=== PATIENT | female | born 1985 | race Caucasian/White ===

== ENCOUNTER 2017-01-19 08:57 | Emergency (ER) | payer BC ==
[2017-01-19 09:10] VITALS: BP 129/89
--- NOTE | 2017-01-19 09:30 | UC ---
Lower Extremity/Ankle HPI - HPI Summary HPI Summary: 31 yo WF post- C/S 2 weeks ago s/p RLE phlebitis c/o right upper inner thigh pain BIB due to dizziness and worsening RLW pain. Pt states she has not been feeling well in the last 2 days , leg pain is associated with chills and dizziness but denies CP/SOB. Denies having a DVT - History of Current Complaint Chief Complaint: UCLowerExtremity Stated Complaint: LEG PAIN Time Seen by Provider: 01/19/17 09:10 Hx Obtained From: Patient Hx Last Menstrual Period: 07/23/14 ?: No Onset/Duration: Sudden Onset Severity Initially: Moderate - Allergies/Home Medications Allergies/Adverse Reactions: Allergies Allergy/AdvReac Type Severity Reaction Status Date / Time No Known Allergies Allergy Verified 01/19/17 09:23 Home Medications: Home Medications Multivit-Min W/Fe-FA [ and Iron] 01/19/17 [History] PMH/Surg Hx/FS Hx/Imm Hx - Additional Past Medical History Additional PMH: POst C/S 2 weeks ago, had phlebitis Previously Healthy: Yes - Surgical History Surgical History: None - Social History Alcohol Use: Occasionally Substance Use Type: None Smoking Status (MU): Light Every Day Tobacco Smoker Type: Cigarettes Review of Systems Constitutional: Chills Skin: Other - appears ill ENT: Negative Respiratory: Negative Cardiovascular: Negative Genitourinary: Negative Motor: Negative Musculoskeletal: Myalgia - SEE HPI Neurological: Negative All Other Systems Reviewed And Are Negative: Yes Physical Exam Triage Information Reviewed: Yes Appearance: Ill-Appearing Vital Signs: Initial Vital Signs Temp 36.3 C 01/19/17 09:06 Pulse 123 01/19/17 09:06 Resp 18 01/19/17 09:06 BP 129/89 01/19/17 09:06 Pulse Ox 98 01/19/17 09:06 Eye Exam: Normal ENT Exam: Normal Dental Exam: Normal Neck exam: Normal Neck: Positive: 1 Respiratory Exam: Normal Respiratory: Positive: Lungs clear Cardiovascular Exam: Normal Cardiovascular: Positive: Tachycardia Abdominal Exam: Normal Abdomen Description: Positive: Nontender Musculoskeletal: Positive: Other: - TTP over right upper inner thigh region, radiating anteriorly, TTP also over popliteus Neurological Exam: Normal Psychological Exam: Normal Skin Exam: Normal Lower Extremity Course/Dx - Course Course Of Treatment: Called [facility] spoke to BRIAN, the provider in the ED and notifed her that she will need w/u for her dizziness, and r/o RLE DVT vs PE. EKG revealed sinus tachy, rate of 110. - Differential Dx/Diagnosis Provider Diagnoses: 1- right thigh pain. 2- tachycardia. 3 - weakness Discharge - Discharge Plan Condition: Stable Disposition: ADMITTED TO [facility] Discharge Disposition Comment: Called [facility] and pt sent via Ambulance Referrals: Lisa Kumar MD [Primary Care Provider] -
[2017-01-19] MEDS ORDERED: NS 0.9% 1000 ML* 1,000 ML IV ONE (09:40)
== END 2017-01-19 09:40 | disposition short-term general hospital (02) ==
LOC: UCEAST 08:57
DX: M79.651 Pain in right thigh (principal); R00.0 Tachycardia, unspecified; R53.1 Weakness; F17.210 Nicotine dependence, cigarettes, uncomplicated
CPT/HCPCS: 93005; 99213; G0463

== ENCOUNTER → 2017-01-19 09:54 | Emergency (ER) | payer BC ==
[~2017-01-19 09:54] MED LIST: Enoxaparin(*) 80 MG/0.8 ML SYR SUBCUT SCH; Iohexol 350* (CONTRAST) 500 ML MDV IV ONE; NS 0.9% 1000 ML* 1,000 ML IV ONE; Warfarin TAB(*) 5 MG PO ONE
[2017-01-19 10:22] LABS: Hematocrit 36 % (35-47); Hemoglobin 12.1 g/dl (12.0-16.0); Mean Corpuscular HGB Conc 33 g/dl (31-36); Mean Corpuscular Hemoglobin 32 pg (27-31); Mean Corpuscular Volume 95 fL (80-97); Mean Platelet Volume 8 um3 (7.4-10.4); Red Blood Count 3.83 10^6/ul (4.0-5.4); Red Cell Distribution Width 13 % (10.5-15); White Blood Count 19.6 10^3/ul (3.5-10.8)
[2017-01-19 10:33] LABS: Albumin 3.6 g/dL (3.2-5.2); BUN/Creatinine Ratio 17.3 (8-20); EGFR African American 106.1 (>60); EGFR Non-African American 82.5 (>60); Globulin 3.3 g/dL (2-4); Magnesium 1.6 mg/dL (1.9-2.7); Potassium 3.7 mmol/L (3.5-5.0); Total Bilirubin 0.8 mg/dL (0.2-1.0); Total Protein 6.9 g/dL (6.4-8.9)
[2017-01-19 10:53] LABS: TSH (Thyroid Stimulating Horm) 0.9 mcIU/mL (0.34-5.60)
--- NOTE | 2017-01-19 11:06 | RAD ---
HISTORY: Right lower extremity pain in a woman who is 2 weeks TECHNIQUE: Multiple transverse and longitudinal ultrasound images were obtained of the veins of the right lower extremity using grayscale, color Doppler, and spectral Doppler imaging with and without compression and with augmentation. FINDINGS: VEINS: There is partially occlusive thrombus of the right common femoral vein with occlusive thrombus extending into the proximal portions of the femoral vein and femoral profundus. There is occlusive thrombus extending throughout the length of the right femoral vein into the popliteal vein. The right infrapopliteal veins exhibited partially occlusive thrombus. There is adequate flow in the left common femoral vein but incidentally identified is occlusive thrombus of the proximal left femoral profundus vein. SOFT TISSUES: Grossly normal. No large popliteal fossa cyst was identified. IMPRESSION: There is deep vein thrombosis extending from the right common femoral vein through the right popliteal vein. Also identified is occlusive thrombus of the left femoral profundus vein. If the patient has prior CT imaging of the abdomen and pelvis that can be made available this can be reviewed to determine if the patient has any venous compression syndromes. Follow-up imaging within 1-2 weeks is advised to ascertain resolution of the DVT. If this woman's bilateral lower extremity deep vein thrombosis has not significantly improved, and there are no prior CTs of the abdomen and pelvis for review, CT or MR imaging of the abdominal pelvic venous system would be appropriate.
--- NOTE | 2017-01-19 11:37 | ED ---
Lower Extremity - HPI Summary HPI Summary: 31F presents with right lower leg pain for 2 days. She is two week via . She has history of phlebitis. She states she has been having increase pain into that leg and is concern for DVT. She was a smoker. She denies any chest pain, SOB, or palpitations. Her grandmother has history of DVT. She also states she has been dizzy and increased fatigue. She denies any history of previous DVT. She denies any recent travel. She is breast feeding. She has no medical conditions. She denies any fever or spreading redness. She denies any recent infections. - History of Current Complaint Chief Complaint: EDExtremityLower Stated Complaint: LEG PAIN Time Seen by Provider: 01/19/17 09:55 Hx Last Menstrual Period: 07/23/14 Pain Intensity: 5 - Allergies/Home Medications Allergies/Adverse Reactions: Allergies Allergy/AdvReac Type Severity Reaction Status Date / Time No Known Allergies Allergy Verified 01/19/17 09:23 PMH/Surg Hx/FS Hx/Imm Hx Endocrine/Hematology History: Denies: Hx Diabetes, Hx Thyroid Disease Cardiovascular History: Denies: Hx Hypertension Respiratory History: Denies: Hx Asthma, Hx Chronic Obstructive Pulmonary Disease (COPD) GI History: Denies: Hx Ulcer Infectious Disease History: No Infectious Disease History: Denies: Hx Hepatitis, Hx Human Immunodeficiency Virus (HIV), Traveled Outside the in Last 30 Days - Family History Known Family History: Positive: Blood Disorder - Social History Alcohol Use: Occasionally Substance Use Type: Reports: None Smoking Status (MU): Light Every Day Tobacco Smoker Type: Cigarettes Review of Systems Negative: Fever Negative: Chest Pain Negative: Shortness Of Breath Positive: Edema - right leg All Other Systems Reviewed And Are Negative: Yes Physical Exam Triage Information Reviewed: Yes Vital Signs On Initial Exam: Initial Vitals Temp Pulse Resp BP Pulse Ox 98.3 F 108 18 143/85 99 01/19/17 10:02 01/19/17 10:02 01/19/17 10:02 01/19/17 10:02 01/19/17 10:02 Vital Signs Reviewed: Yes Appearance: Positive: Well-Appearing Skin: Positive: Warm, Dry Head/Face: Positive: Normal Head/Face Inspection Eyes: Positive: Normal, EOMI, AMERICA, Conjunctiva Clear ENT: Positive: Normal ENT inspection, Pharynx normal, TMs normal Respiratory/Lung Sounds: Positive: Clear to Auscultation, Breath Sounds Present Cardiovascular: Positive: Tachycardia Abdomen Description: Positive: Nontender, Soft Bowel Sounds: Positive: Present Musculoskeletal: Positive: Strength/ROM Intact - right leg, Axel Sign Right, Other - good pulses, tenderness over right calf and thigh. Neurological: Positive: Normal Psychiatric: Positive: Normal - Mireya Coma Scale Coma Scale Total: 15 Diagnostics - Vital Signs Vital Signs Temp Pulse Resp BP Pulse Ox 01/19/17 10:02 98.3 F 108 18 143/85 99 - Laboratory Lab Results: Lab Results 01/19/17 01/19/17 01/19/17 Range/Units 09:34 09:34 09:34 WBC 19.6 H (3.5-10.8) 10^3/ul RBC 3.83 L (4.0-5.4) 10^6/ul Hgb 12.1 (12.0-16.0) g/dl Hct 36 (35-47) % MCV 95 (80-97) fL MCH 32 H (27-31) pg MCHC 33 (31-36) g/dl RDW 13 (10.5-15) % Plt Count 300 (150-450) 10^3/ul MPV 8 (7.4-10.4) um3 Neut % (Auto) 87.0 H (38-83) % Lymph % (Auto) 5.9 L (25-47) % Allen % (Auto) 6.8 (1-9) % Eos % (Auto) 0.1 (0-6) % Baso % (Auto) 0.2 (0-2) % Absolute Neuts (auto) 17.1 H (1.5-7.7) 10^3/ul Absolute Lymphs (auto) 1.2 (1.0-4.8) 10^3/ul Absolute Monos (auto) 1.3 H (0-0.8) 10^3/ul Absolute Eos (auto) 0 (0-0.6) 10^3/ul Absolute Basos (auto) 0 (0-0.2) 10^3/ul Absolute Nucleated RBC 0 10^3/ul Nucleated RBC % 0 INR (Anticoag Therapy) 1.10 H (0.77-1.02) APTT 27.8 (26.0-36.3) seconds Sodium 134 (133-145) mmol/L Potassium 3.7 (3.5-5.0) mmol/L Chloride 103 (101-111) mmol/L Carbon Dioxide 22 (22-32) mmol/L Anion Gap 9 (2-11) mmol/L BUN 14 (6-24) mg/dL Creatinine 0.81 (0.51-0.95) mg/dL Est GFR ( Amer) 106.1 (>60) Est GFR (Non-Af Amer) 82.5 (>60) BUN/Creatinine Ratio 17.3 (8-20) Glucose 115 H (70-100) mg/dL Calcium 9.0 (8.6-10.3) mg/dL Magnesium 1.6 L (1.9-2.7) mg/dL Total Bilirubin 0.80 (0.2-1.0) mg/dL AST 13 (13-39) U/L ALT 14 (7-52) U/L Alkaline Phosphatase 64 (34-104) U/L Total Protein 6.9 (6.4-8.9) g/dL Albumin 3.6 (3.2-5.2) g/dL Globulin 3.3 (2-4) g/dL Albumin/Globulin Ratio 1.1 (1-3) TSH 0.90 (0.34-5.60) mcIU/mL Result Diagrams: 01/19/17 09:34 01/19/17 09:34 Lab Statement: Any lab studies that have been ordered have been reviewed, and results considered in the medical decision making process. - CT cta CT Interpretation: Positive (See Comments) - IMPRESSION: Poor bolus timing prevents reliable evaluation of the pulmonary arteries beyond the right and left mainstem pulmonary arteries. There is no acute pulmonary embolus of the right or left mainstem pulmonary arteries. Findings and limitations of this study were discussed with Cat HODGE at approximately 1230 hours on January 19, 2017. CT Interpretation Completed By: Radiologist - Ultrasound No standard instances Ultrasound Interpretation: Positive (See Comments) - IMPRESSION: There is deep vein thrombosis extending from the right common femoral vein through the right popliteal vein. Also identified is occlusive thrombus of the left femoral profundus vein. If the patient has prior CT imaging of the abdomen and pelvis that can be made available this can be reviewed to determine if the patient has any venous compression syndromes. Follow-up imaging within 1-2 weeks is advised to ascertain resolution of the DVT. If this woman's bilateral lower extremity deep vein thrombosis has not significantly improved, and there are no prior CTs of the abdomen and pelvis for review, CT or MR imaging of the abdominal pelvic venous system would be appropriate. Ultrasound Interpretation Completed By: Radiologist - EKG No standard instances Cardiac Rate: Tachycardia EKG Rhythm: Sinus Tachycardia EKG Interpretation: sinus tachycardia Lower Extremity Course/Dx - Course Course Of Treatment: 31F presents with right lower leg pain for 2 days. She is two week via . She has history of phlebitis. She states she has been having increase pain into that leg and is concern for DVT. She was a smoker. She denies any chest pain, SOB, or palpitations. Her grandmother has history of DVT. She also states she has been dizzy and increased fatigue. She denies any history of previous DVT. She denies any recent travel. She is breast feeding. She has no medical conditions. She denies any fever or spreading redness. She denies any recent infections. got labs has elevated wbc. u/s shows extensive DVT in right leg. due to being tachycardia got CTA. dr vega called and said the CTA dye was not timed right so can not see all peripheral lungs. discussed with dr roca and said should get admission for potenital PE. discussed with hospitalist and dr munoz saw and recommends discharge with levonox and warfarin as long as BNP and troponin neg which are. recommends follow up with heme onc. ekg sinus tachycardia no evidence of right heart strain. explained risks that could be missing a PE and patient understand and is okay with discharge. explained risk and benefits of anticoagulants. nurse showed how to give lovenox. - Diagnoses Differential Diagnosis/HQI/PQRI: Positive: DVT, Phlebitis, Other - PE, Provider Diagnoses: Deep venous thrombosis, Tachycardia - Physician Notifications Discussed Care Of Patient With: dr munoz Time Discussed With Above Provider: 13:00 - saw patient recommends warfarin, lovenox and follow up with heme Discharge - Discharge Plan Condition: Good Disposition: HOME Prescriptions: Enoxaparin(*) [Lovenox(*)] 80 mg SUBCUT Q12HR #20 syringe Warfarin TAB(*) [Coumadin TAB(*)] 5 mg PO DAILY #14 tab Patient Education Materials: Warfarin (By mouth), Enoxaparin (By injection), Deep Venous Thrombosis (ED) Referrals: Lisa Kumar MD [Primary Care Provider] - Emile Perrin MD [Medical Doctor] - Additional Instructions: Follow up with hematology within week Inject 80mg twice a day of lovenox until seen heme and bridged to warfarin Take warfarin once a day Avoid ASA and ibuprofen Keep diet consistent Return to ED if develop any shortness of breath or chest pain or any new or worsening symptoms
[2017-01-19 12:43] LABS: PCO2 Arterial 32 mmHg (35-45)
--- NOTE | 2017-01-19 12:52 | RAD ---
INDICATION: Tachycardia with recently diagnosed bilateral lower extremity deep vein thrombosis. COMPARISON: None TECHNIQUE: Axial source images were acquired following the administration of 80 mL Omnipaque [address] angiographic technique. Coronal and sagittal reconstructed images were constructed and reviewed. FINDINGS: Poor bolus timing prevents reliable evaluation beyond the right left mainstem pulmonary arteries. There there are no filling defects in the right and left mainstem pulmonary arteries to indicate acute central pulmonary embolic disease. There are no focal infiltrates or effusions. There are no pulmonary parenchymal masses. The heart is normal in size. There is no evidence of pericardial effusion. There is no evidence of aortic aneurysm or dissection. There is no mediastinal, hilar, or axillary lymphadenopathy. The visualized osseous structures appear normal. Limited views of the upper abdomen show no abnormalities. IMPRESSION: Poor bolus timing prevents reliable evaluation of the pulmonary arteries beyond the right and left mainstem pulmonary arteries. There is no acute pulmonary embolus of the right or left mainstem pulmonary arteries. Findings and limitations of this study were discussed with Cat HODGE at approximately 1230 hours on January 19, 2017.
[2017-01-19 15:29] VITALS: BP 133/72
== END | disposition home or self-care (01) ==
LOC: ED 09:54
DX: O87.1 Deep phlebothrombosis in the puerperium (principal); I82.4Z1 Acute embolism and thrombosis of unspecified deep veins of right distal lower extremity; Z87.891 Personal history of nicotine dependence; O90.89 Other complications of the puerperium, not elsewhere classified; R00.0 Tachycardia, unspecified
CPT/HCPCS: 36415; 36600; 71275; 80053; 82803; 83735; 83880; 84443; 84484; 85025; 85610; 85730; 93005; 96360; 96374; 99282; A9270-GY; J1650; Q9967

== ENCOUNTER 2017-01-23 17:44 | Emergency (ER) | payer BC ==
[2017-01-23] MEDS ORDERED: oxyCODONE/Acetamin 5/325 MG* TAB PO ONE ×2 (18:41→22:15)
[2017-01-23] MEDS ORDERED: NS 0.9% 1000 ML* 1,000 ML IV SCH (18:45)
[2017-01-23 19:22] LABS: Hematocrit 32 % (35-47); Hemoglobin 10.9 g/dl (12.0-16.0); Mean Corpuscular HGB Conc 34 g/dl (31-36); Mean Corpuscular Hemoglobin 31 pg (27-31); Mean Corpuscular Volume 92 fL (80-97); Mean Platelet Volume 8 um3 (7.4-10.4); Red Blood Count 3.46 10^6/ul (4.0-5.4); Red Cell Distribution Width 13 % (10.5-15); White Blood Count 11.3 10^3/ul (3.5-10.8)
[2017-01-23 19:39] LABS: Albumin 3.1 g/dL (3.2-5.2); BUN/Creatinine Ratio 17.6 (8-20); C Reactive Protein 269.63 mg/L (< 5.00); Calcium 9.3 mg/dL (8.6-10.3); EGFR African American 129.8 (>60); EGFR Non-African American 100.9 (>60); Globulin 3.5 g/dL (2-4); Potassium 4.3 mmol/L (3.5-5.0); Total Bilirubin 0.3 mg/dL (0.2-1.0); Total Protein 6.6 g/dL (6.4-8.9)
[2017-01-23] MEDS ORDERED: Enoxaparin(*) 80 MG/0.8 ML SYR SUBCUT ONE (21:45)
--- NOTE | 2017-01-23 21:54 | RAD ---
Indication: Right leg swelling. Duplex Doppler sonography of the deep venous system of the right lower extremity was performed. The right common femoral vein, proximal deep femoral vein, femoral vein to popliteal vein posterior tibial vein is noncompressible with echogenic material and no flow. This is consistent with occlusive thrombus. Peroneal veins appear patent. IMPRESSION: Deep venous thrombosis from the right common femoral vein to the right posterior tibial veins.
--- NOTE | 2017-01-23 22:22 | ED ---
Merrick Evans Gabriel, scribed for Leon Low MD on 01/23/17 at 1839 . Lower Extremity - HPI Summary HPI Summary: This patient is a 31 year old F presenting to [facility] accompanied by mother with a chief complaint of LLE pain since Friday. The patient rates the pain 6/10 in severity. Patient reports RLE pain. Patient denies numbness in left foot, CP, SOB, and ABD pain. Pt was diagnosed with DVT on Friday and has been on lovenox and warfarin for the clot. She does report that her leg has gotten larger since Friday and more painful. It is believed that the clot is from a C section she had 2 and a half weeks ago. - History of Current Complaint Chief Complaint: EDExtremityLower Stated Complaint: BLOOD CLOT IN RT LEG-WAS HERE 01/19 Time Seen by Provider: 01/23/17 18:23 Hx Obtained From: Patient Hx Last Menstrual Period: 07/23/14 Onset of Pain: - friday Severity Currently: Moderate Pain Intensity: 6 Pain Scale Used: 0-10 Numeric Timing: Constant Associated Signs And Symptoms: Positive: Swelling - Allergies/Home Medications Allergies/Adverse Reactions: Allergies Allergy/AdvReac Type Severity Reaction Status Date / Time No Known Allergies Allergy Verified 01/19/17 09:23 PMH/Surg Hx/FS Hx/Imm Hx Previously Healthy: No Endocrine/Hematology History: Denies: Hx Diabetes, Hx Thyroid Disease Cardiovascular History: Reports: Hx Deep Vein Thrombosis Denies: Hx Hypertension Respiratory History: Denies: Hx Asthma, Hx Chronic Obstructive Pulmonary Disease (COPD) GI History: Denies: Hx Ulcer - Surgical History Surgery Procedure, Year, and Place: C- section 01/03 Infectious Disease History: No Infectious Disease History: Denies: Hx Hepatitis, Hx Human Immunodeficiency Virus (HIV), Traveled Outside the [place] in Last 30 Days - Family History Known Family History: Positive: Blood Disorder - Social History Alcohol Use: Occasionally Substance Use Type: Reports: None Smoking Status (MU): Light Every Day Tobacco Smoker Type: Cigarettes Review of Systems Negative: Chest Pain Negative: Shortness Of Breath Negative: Abdominal Pain Positive: Edema, Other - RLE pain Negative: Numbness All Other Systems Reviewed And Are Negative: Yes Physical Exam - Summary Physical Exam Summary: General: well-appearing, no pain distress Skin: warm, color reflects adequate perfusion, dry Head: normal Eyes: EOMI, AMERICA ENT: normal Neck: supple, nontender Respiratory: CTA, breath sounds present Cardiovascular: RRR Abdomen: soft, nontender Bowel: present Musculoskeletal: right leg is larger than the left due to edema. The right leg has good capillary refill and pulses Neurological: normal, sensory/motor intact, A&O x3 Psychological: affect/mood appropriate Triage Information Reviewed: Yes Vital Signs On Initial Exam: Initial Vitals Temp Pulse Resp BP Pulse Ox 97.8 F 97 20 145/78 100 01/23/17 17:47 01/23/17 17:47 01/23/17 17:47 01/23/17 17:47 01/23/17 17:47 Vital Signs Reviewed: Yes Diagnostics - Vital Signs Vital Signs Temp Pulse Resp BP Pulse Ox 01/23/17 17:47 97.8 F 97 20 145/78 100 - Laboratory Lab Results: Lab Results 01/23/17 01/23/17 01/23/17 Range/Units 19:11 19:11 19:11 WBC (3.5-10.8) 10^3/ul RBC (4.0-5.4) 10^6/ul Hgb (12.0-16.0) g/dl Hct (35-47) % MCV (80-97) fL MCH (27-31) pg MCHC (31-36) g/dl RDW (10.5-15) % Plt Count (150-450) 10^3/ul MPV (7.4-10.4) um3 Neut % (Auto) (38-83) % Lymph % (Auto) (25-47) % Barren % (Auto) (1-9) % Eos % (Auto) (0-6) % Baso % (Auto) (0-2) % Absolute Neuts (auto) (1.5-7.7) 10^3/ul Absolute Lymphs (auto) (1.0-4.8) 10^3/ul Absolute Monos (auto) (0-0.8) 10^3/ul Absolute Eos (auto) (0-0.6) 10^3/ul Absolute Basos (auto) (0-0.2) 10^3/ul Absolute Nucleated RBC 10^3/ul Nucleated RBC % INR (Anticoag Therapy) 2.16 H (0.77-1.02) APTT 36.1 (26.0-36.3) seconds Sodium 136 (133-145) mmol/L Potassium 4.3 (3.5-5.0) mmol/L Chloride 102 (101-111) mmol/L Carbon Dioxide 26 (22-32) mmol/L Anion Gap 8 (2-11) mmol/L BUN 12 (6-24) mg/dL Creatinine 0.68 (0.51-0.95) mg/dL Est GFR ( Amer) 129.8 (>60) Est GFR (Non-Af Amer) 100.9 (>60) BUN/Creatinine Ratio 17.6 (8-20) Glucose 106 H (70-100) mg/dL Lactic Acid (0.5-2.0) mmol/L Calcium 9.3 (8.6-10.3) mg/dL Total Bilirubin 0.30 (0.2-1.0) mg/dL AST 35 (13-39) U/L ALT 45 (7-52) U/L Alkaline Phosphatase 81 (34-104) U/L C-Reactive Protein 269.63 H (< 5.00) mg/L B-Natriuretic Peptide 43 ( - 100) pg/mL Total Protein 6.6 (6.4-8.9) g/dL Albumin 3.1 L (3.2-5.2) g/dL Globulin 3.5 (2-4) g/dL Albumin/Globulin Ratio 0.9 L (1-3) Beta HCG, Quant 1.57 mIU/mL 01/23/17 01/23/17 Range/Units 19:11 19:11 WBC 11.3 H (3.5-10.8) 10^3/ul RBC 3.46 L (4.0-5.4) 10^6/ul Hgb 10.9 L (12.0-16.0) g/dl Hct 32 L (35-47) % MCV 92 (80-97) fL MCH 31 (27-31) pg MCHC 34 (31-36) g/dl RDW 13 (10.5-15) % Plt Count 417 (150-450) 10^3/ul MPV 8 (7.4-10.4) um3 Neut % (Auto) 73.8 (38-83) % Lymph % (Auto) 14.6 L (25-47) % Barren % (Auto) 9.0 (1-9) % Eos % (Auto) 1.2 (0-6) % Baso % (Auto) 1.4 (0-2) % Absolute Neuts (auto) 8.3 H (1.5-7.7) 10^3/ul Absolute Lymphs (auto) 1.6 (1.0-4.8) 10^3/ul Absolute Monos (auto) 1.0 H (0-0.8) 10^3/ul Absolute Eos (auto) 0.1 (0-0.6) 10^3/ul Absolute Basos (auto) 0.2 (0-0.2) 10^3/ul Absolute Nucleated RBC 0 10^3/ul Nucleated RBC % 0 INR (Anticoag Therapy) (0.77-1.02) APTT (26.0-36.3) seconds Sodium (133-145) mmol/L Potassium (3.5-5.0) mmol/L Chloride (101-111) mmol/L Carbon Dioxide (22-32) mmol/L Anion Gap (2-11) mmol/L BUN (6-24) mg/dL Creatinine (0.51-0.95) mg/dL Est GFR ( Amer) (>60) Est GFR (Non-Af Amer) (>60) BUN/Creatinine Ratio (8-20) Glucose (70-100) mg/dL Lactic Acid 0.6 (0.5-2.0) mmol/L Calcium (8.6-10.3) mg/dL Total Bilirubin (0.2-1.0) mg/dL AST (13-39) U/L ALT (7-52) U/L Alkaline Phosphatase (34-104) U/L C-Reactive Protein (< 5.00) mg/L B-Natriuretic Peptide ( - 100) pg/mL Total Protein (6.4-8.9) g/dL Albumin (3.2-5.2) g/dL Globulin (2-4) g/dL Albumin/Globulin Ratio (1-3) Beta HCG, Quant mIU/mL Result Diagrams: 01/23/17 19:11 01/23/17 19:11 Lab Statement: Any lab studies that have been ordered have been reviewed, and results considered in the medical decision making process. - Additional Comments Diagnostic Additional Comments: Venous Doppler Study reveals, per radiologist, Deep venous thrombosis from the right common femoral vein to the right posterior tibial veins. ED physician has reviewed this radiology report and agrees. Lower Extremity Course/Dx - Course Course Of Treatment: DISCUSSED RESULTS WITH PATIENT/FAMILY. DISCUSSED WITH DR POWER, HEMATOLOGY/ONCOLOGY. HE RECOMMENDED MORE REST AND ELEVATION OF THE LEG AND F/U WITH HIS GROUP. HE DID NOT RECOMMEND A CTA CHEST AT THIS TIME (ONE WAS DONE 01/19/17). ALL THIS WAS DISCUSSED WITH THE PATIENT AND HER FAMILY MEMBER. RETURN TO ED IF WORSE/QUESTIONS/CONCERNS. - Diagnoses Provider Diagnoses: Deep vein thrombosis (DVT) of right lower extremity - Physician Notifications Discussed Care Of Patient With: Emile Patel Time Discussed With Above Provider: 18:36 Instructed by Provider To: Other - Dr. Salazar suggest to test her INR and said that swelling after lovanox is natural keep it elevated and stay on her current blood thinners. 22:[address] Salazar he suggested she keep taking thinners and said his office will contact her for follow up on Friday. Discharge - Discharge Plan Condition: Stable Disposition: HOME Prescriptions: oxyCODONE/Acetamin 5/325 MG* [Percocet 5/325 TAB*] 1 tab PO Q4H PRN #20 tab MDD 6 PRN Reason: Pain Patient Education Materials: Deep Venous Thrombosis (ED) Referrals: Lisa Kumar MD [Medical Doctor] - Nilton Power MD [Medical Doctor] - Additional Instructions: FOLLOW UP WITH HEMATOLOGY/ONCOLOGY, DR POWER'S GROUP. THEY WILL CONTACT YOU TOMORROW FOR FOLLOW UP WHICH IS EXPECTED TO BE ON . IF THEY DO NOT CONTACT YOU, CALL THEM AT [phone] TO ARRANGE FOLLOW UP. RETURN TO THE EMERGENCY DEPARTMENT FOR ANY WORSENING OF YOUR CONDITION; PAIN, FEVER, CHEST PAIN, SHORTNESS OF BREATH, YOU FEEL ILL OR QUESTIONS OR CONCERNS. The documentation as recorded by the Merrick castro Gabriel accurately reflects the service I personally performed and the decisions made by me, Leon Low MD.
[2017-01-23 23:00] VITALS: BP 118/75
== END 2017-01-23 22:40 | disposition home or self-care (01) ==
LOC: ED 17:44
DX: O87.1 Deep phlebothrombosis in the puerperium (principal); I82.4Z1 Acute embolism and thrombosis of unspecified deep veins of right distal lower extremity; O99.335 Smoking (tobacco) complicating the puerperium; F17.210 Nicotine dependence, cigarettes, uncomplicated
CPT/HCPCS: 36415; 80053; 83605; 83880; 84702; 85025; 85610; 85730; 86140; 99284; A9270-GY; J1650